=== PATIENT | male | born 1955 | race Caucasian/White ===

== ENCOUNTER 2018-04-29 12:24 | Emergency (ER) | payer BC ==
[~2018-04-29] VITALS: Ht 167.6 cm; Wt 61.2 kg
[2018-04-29 12:37] VITALS: BP 144/92
[2018-04-29] MEDS ORDERED: DIPHTH,PERTUSS(ACELL),TET TOX 0.5 ML DISP.SYRIN. VAX IM ONE (13:00)
--- NOTE | 2018-04-29 13:06 | PHYS DOC ---
Past Medical History Past Medical History: High Cholesterol Past Surgical History: Tonsillectomy, Other Additional Past Surgical Histo: partial parathyroidectomy; hernia Alcohol Use: None Drug Use: None Adult General Chief Complaint Chief Complaint: LACERATION/AVULSION HPI HPI Patient is a 62 year old male who presents with elevated at this morning he was trying to compress trash down in the dumpster and got into the dumpster and left is balance and slipped and hit his head on the side of the dumpster of which left a right upper forehead 2.5 inch laceration. Bleeding is controlled. Patient states he can't remember the last time he had a tetanus shot. Alert and oriented denies LOC, dizziness, nausea, vomiting, visual changes, or headache. Review of Systems Review of Systems Constitutional: Denies fever or chills [] Eyes: Denies change in visual acuity, redness, or eye pain [] HENT: Denies nasal congestion or sore throat [] Respiratory: Denies cough or shortness of breath [] Cardiovascular: No additional information not addressed in HPI [] GI: Denies abdominal pain, nausea, vomiting, bloody stools or diarrhea [] : Denies dysuria or hematuria [] Musculoskeletal: Denies back pain or joint pain [] Integument: Denies rash or skin lesions. Right upper forehead 2.5 inch laceration. [] Neurologic: Denies headache, focal weakness or sensory changes [] Endocrine: Denies polyuria or polydipsia [] All other systems were reviewed and found to be within normal limits, except as documented in this note. Current Medications Current Medications Current Medications Medications (Trade) Dose Ordered Sig/Grace Start Time Stop Time Status Last Admin Dose Admin Diphtheria/ Tetanus/Acell Pertussis (Boostrix) 0.5 ml ONCE ONCE 04/29/18 13:00 04/29/18 13:01 DC 04/29/18 13:58 0.5 ML Lidocaine/ Epinephrine (LIDOCAINE 1%-EPI 1:100,000 Multi-Dose) 20 ml 1X ONCE 04/29/18 13:15 04/29/18 13:17 DC 04/29/18 13:56 20 ML Allergies Allergies Allergies Coded Allergies Type Severity Reaction Last Updated Verified No Known Drug Allergies 04/29/18 No Physical Exam Physical Exam Constitutional: Well developed, well nourished, no acute distress, non-toxic appearance. [] HENT: Normocephalic, atraumatic, bilateral external ears normal, oropharynx moist, no oral exudates, nose normal. [] Eyes: PERRLA, EOMI, conjunctiva normal, no discharge. [] Neck: Normal range of motion, no tenderness, supple, no stridor. [] Cardiovascular:Heart rate regular rhythm, no murmur [] Lungs & Thorax: Bilateral breath sounds clear to auscultation [] Abdomen: Bowel sounds normal, soft, no tenderness, no masses, no pulsatile masses. [] Skin: Warm, dry, no erythema, no rash. 2.5 inch laceration with controlled bleeding. [] Back: No tenderness, no CVA tenderness. [] Extremities: No tenderness, no cyanosis, no clubbing, ROM intact, no edema. [] Neurologic: Alert and oriented X 3, normal motor function, normal sensory function, no focal deficits noted. [] Psychologic: Affect normal, judgement normal, mood normal. [] Current Patient Data Vital Signs Vital Signs Date Time Temp Pulse Resp B/P (MAP) Pulse Ox O2 Delivery O2 Flow Rate FiO2 04/29/18 12:37 98.1 96 18 144/92 (109) 96 Room Air 98.1 EKG EKG [] Radiology/Procedures Radiology/Procedures CT HEAD AND MAXILLOFACIAL Impressions: [facility] [address] [place], [place] [id number] IMAGING REPORT Signed PATIENT: KYLE LAM ACCOUNT: [id number] : 1955 LOCATION: ER AGE: 62 SEX: M EXAM STATUS: REG ER ORD. PHYSICIAN: JOHN KLINE APRN REASON: head injury, laceration PROCEDURE: CT HEAD AND MAXILLOFACIAL WO RS Compliance Statement: One or more of the following individualized dose reduction techniques were utilized for this examination: 1. Automated exposure control 2. Adjustment of the mA and/or kV according to patient size 3. Use of iterative reconstruction technique CT HEAD, MAXILLOFACIAL WITHOUT CONTRAST History: FACAIL LACERATION TO LEFT FOREHEAD, INJURY WITH DUMPSTER Comparison: None. Procedure: Axial images are obtained of the head from the skull base through the vertex without IV contrast. Helical CT imaging of the facial bones is performed without IV contrast. Findings: The ventricles and sulci are normal for the patient's age. No mass-effect, midline shift, hemorrhage or obvious acute infarction is identified. Basilar cisterns are patent. Bone windows demonstrate no significant calvarial abnormality. No acute facial bone fracture. The orbital floors are intact. Leftward deviation of the bony nasal septum. Minimal mucosal thickening of the left maxillary sinus near the infundibular canal. The other visualized paranasal sinuses are clear. Mastoid air cells are well aerated. Upper cervical spine alignment is maintained. Mild degenerative changes. IMPRESSION: 1. No acute intracranial abnormality. 2. No acute facial bone fracture. Electronically signed by: Jose Almodovar MD (04/29/2018 1:41 PM) [facility] DICTATED and SIGNED BY: JOSE ALMDOOVAR MD DATE: 04/29/18 1337 Course & Med Decision Making Course & Med Decision Making Patient is a 62 year old male who presents with elevated at this morning he was trying to compress trash down in the dumpster and got into the dumpster and left is balance and slipped and hit his head on the side of the dumpster of which left a right upper forehead 2.5 inch laceration. Bleeding is controlled. Patient states he can't remember the last time he had a tetanus shot. Alert and oriented denies LOC, dizziness, nausea, vomiting, visual changes, or headache. Skin is pink warm and dry. Lungs are clear to auscultation in all lobes. Heart rate is regular and without murmur. PERRLA. She is neurologically intact and has no numbness or tingling or neck pain. Patient has no C-spine tenderness or facial tenderness. Patient has no drainage from ears or nose. Speech is clear. Patient has no known drug allergies and takes no blood thinners. Patient's only past history is of parathyroid surgery and high cholesterol. Patient is given a Boostrix in the ED. Patient denies any pain. CT of the head and maxillofacial shows no acute findings. Patient to follow up in the ED or with primary within 7 days to have stitches removed. Return sooner if signs of infection such as redness, swelling, drainage, or fever. Laceration Repair by me: Anesthesia: 1% lidocaine with epi locally Location: Right forehead Tendon/Joint/Nerves: No injury Foreign body: None detected after copious irrigation and exploration and Cleaned with 30ml of saline and Betadine Technique: Simple Interrupted Sutures Complexity: 5 Sutures, 3-0 Ethicon, No subcutaneous sutures/mucosal repair/edge excision Post Closure Length: 3 cm Patient's bleeding was easily controlled in the department and there is no indication of anemia. No evidence of compartment syndrome, neurologic injury, vascular injury, open joint, tendon laceration, or foreign body. Patient is appropriate for outpatient follow up. 48 hour wound check. Scar minimization instructions given. Dragon Disclaimer Dragon Disclaimer This electronic medical record was generated, in whole or in part, using a voice recognition dictation system. Departure Departure Impression: Primary Impression: Laceration Disposition: 01 HOME, SELF-CARE Condition: STABLE Patient Instructions: Laceration Care, Adult Additional Instructions: Follow up with your primary care or here at ED in 7 days for suture removal. Return sooner if there are signs of infection as discussed. Scripts Hydrocodone/Apap 5-325 (NORCO 5-325 TABLET) 1 Each Tablet 1 TAB PO PRN Q6HRS PRN for PAIN, #8 TAB 0 Refills Prov: JOHN KLINE APRN 04/29/18 JOHN KLINE APRN Apr 29, 2018 13:06
[2018-04-29] MEDS ORDERED: LIDOCAINE 1%/EPI 1:100,000 20 ML VIAL. INJ ONE (13:15)
--- NOTE | 2018-04-29 13:44 | RAD ---
PQRS Compliance Statement: One or more of the following individualized dose reduction techniques were utilized for this examination: 1. Automated exposure control 2. Adjustment of the mA and/or kV according to patient size 3. Use of iterative reconstruction technique CT HEAD, MAXILLOFACIAL WITHOUT CONTRAST History: FACAIL LACERATION TO LEFT FOREHEAD, INJURY WITH DUMPSTER Comparison: None. Procedure: Axial images are obtained of the head from the skull base through the vertex without IV contrast. Helical CT imaging of the facial bones is performed without IV contrast. Findings: The ventricles and sulci are normal for the patient's age. No mass-effect, midline shift, hemorrhage or obvious acute infarction is identified. Basilar cisterns are patent. Bone windows demonstrate no significant calvarial abnormality. No acute facial bone fracture. The orbital floors are intact. Leftward deviation of the bony nasal septum. Minimal mucosal thickening of the left maxillary sinus near the infundibular canal. The other visualized paranasal sinuses are clear. Mastoid air cells are well aerated. Upper cervical spine alignment is maintained. Mild degenerative changes. IMPRESSION: 1. No acute intracranial abnormality. 2. No acute facial bone fracture. Electronically signed by: Jose Hays MD (04/29/2018 1:41 PM) [facility]
[2018-04-29] MEDS ORDERED: HYDR-971 PO (14:28)
== END 2018-04-29 15:14 | disposition home or self-care (01) ==
LOC: ER 12:24
DX: S01.81XA Laceration without foreign body of other part of head, initial encounter (principal); E78.00 Pure hypercholesterolemia, unspecified; Z90.89 Acquired absence of other organs; W01.198A Fall on same level from slipping, tripping and stumbling with subsequent striking against other object, initial encounter; Y93.89 Activity, other specified; Y92.89 Other specified places as the place of occurrence of the external cause; Y99.8 Other external cause status
CPT/HCPCS: 12013; 70450; 70486; 90471; 90715; 99284; J3490; 99283

== ENCOUNTER 2018-05-06 15:36 | Emergency (ER) | payer BC ==
[~2018-05-06] VITALS: Ht 167.6 cm; Wt 72.6 kg
[~2018-05-06 15:36] MED LIST: HYDR-971 PO
[2018-05-06 16:09] VITALS: BP 150/80
--- NOTE | 2018-05-06 16:15 | PHYS DOC ---
Past Medical History Past Medical History: High Cholesterol Past Surgical History: Tonsillectomy, Other Additional Past Surgical Histo: partial parathyroidectomy; hernia Alcohol Use: None Drug Use: None Adult General Chief Complaint Chief Complaint: SUTURE/STAPLE REMOVAL [facility] Patient is a 62 year old male who presents with a need for suture removal. The patient has 5 sutures patent and a well-healed laceration to his right forehead. He states that there has been no complications. Review of Systems Review of Systems Constitutional: Denies fever or chills [] Respiratory: Denies cough or shortness of breath [] Cardiovascular: No additional information not addressed in [facility] [][] Integument: See history of present illness Neurologic: Denies headache, focal weakness or sensory changes [] Endocrine: Denies polyuria or polydipsia [] All other systems were reviewed and found to be within normal limits, except as documented in this note. Allergies Allergies Allergies Coded Allergies Type Severity Reaction Last Updated Verified No Known Drug Allergies 04/29/18 No Physical Exam Physical Exam Constitutional: Well developed, well nourished, no acute distress, non-toxic appearance. [] Cardiovascular:Heart rate regular rhythm, no murmur [] Lungs & Thorax: Bilateral breath sounds clear to auscultation [] Abdomen: Bowel sounds normal, soft, no tenderness, no masses, no pulsatile masses. [] Skin: 0.5 cm well-healed laceration to the right upper forehead. 5 sutures were removed with no complication. Back: No tenderness, no CVA tenderness. [] Extremities: No tenderness, no cyanosis, no clubbing, ROM intact, no edema. [] Neurologic: Alert and oriented X 3, normal motor function, normal sensory function, no focal deficits noted. [] Psychologic: Affect normal, judgement normal, mood normal. [] EKG EKG [] Radiology/Procedures Radiology/Procedures [] Course & Med Decision Making Course & Med Decision Making Pertinent Labs and Imaging studies reviewed. (See chart for details) [] Dragon Disclaimer Dragon Disclaimer This electronic medical record was generated, in whole or in part, using a voice recognition dictation system. Departure Departure Impression: Primary Impression: Visit for suture removal Disposition: 01 HOME, SELF-CARE Condition: STABLE Referrals: FLAKO CONTRERAS DO (PCP) Patient Instructions: Suture Removal Additional Instructions: Continue to keep the laceration clean and dry. Do not scrub at the healing laceration. The scabs will come off through normal showering. If worsening follow-up with your PCP or the emergency department. PHIL LONGORIA APRN May 06, 2018 16:15
== END 2018-05-06 16:31 | disposition home or self-care (01) ==
LOC: ER 15:36
DX: S01.81XD Laceration without foreign body of other part of head, subsequent encounter (principal); E78.00 Pure hypercholesterolemia, unspecified; Z90.89 Acquired absence of other organs; X58.XXXD Exposure to other specified factors, subsequent encounter
CPT/HCPCS: 99281